=== PATIENT | female | born 1990 | race Hispanic/Latino ===

== ENCOUNTER 2023-08-20 15:13 | Emergency (ER) | payer MEDICAID, SELFPAY ==
[2023-08-20] MEDS ORDERED: Dexamethasone 10 MG/ML VIAL ONE (17:14)
== END 2023-08-20 17:20 | disposition home or self-care (01) ==
LOC: ERS 15:13
DX: G51.0 Bell's palsy (principal)
CPT/HCPCS: 96372; 99284; J1100